=== PATIENT | male | born 1955 | race Caucasian/White ===

== ENCOUNTER 2017-11-29 17:38 | Emergency (ER) | payer OTHER ==
[2017-11-29] MEDS ORDERED: Silver Nitrate Applicator Each TOP ONE (18:38)
[2017-11-29] MEDS ORDERED: Diphtheria,Pertussis(Acell),Tetanus Vaccine 0.5 ML SDV IM ONE (18:51)
--- NOTE | 2017-11-29 18:54 | EDM.PDOC ---
ED HPI GENERAL MEDICAL PROBLEM - General Chief Complaint: Laceration Stated Complaint: LEFT THUMB LACERATION Time Seen by Provider: 11/29/17 18:20 Source of Information: Reports: Patient, Family History Limitations: Reports: No Limitations - History of Present Illness INITIAL COMMENTS - FREE TEXT/NARRATIVE: Hi presents today for laceration of left thumb. He reports he was cutting kindling and cut the tip of his thumb with a ax. Left 1-Thumb Pain Score (Numeric/FACES): 4 - Related Data Allergies Allergy/AdvReac Type Severity Reaction Status Date / Time No Known Allergies Allergy Verified 11/29/17 18:25 Home Meds: Home Meds Sertraline HCl 50 mg PO DAILY 11/29/17 [History] Past Medical History Psychiatric History: Reports: Depression Social & Family History - Tobacco Use Smoking Status *Q: Never Smoker - Caffeine Use Caffeine Use: Reports: Coffee - Recreational Drug Use Recreational Drug Use: No ED ROS GENERAL - Review of Systems Review Of Systems: See Below Constitutional: Reports: No Symptoms HEENT: Reports: No Symptoms Respiratory: Reports: No Symptoms Cardiovascular: Reports: No Symptoms Endocrine: Reports: No Symptoms Musculoskeletal: Reports: Other (left thumb pain) Skin: Reports: Other (avulsion of left lateral tip of thumb via ax) Neurological: Reports: No Symptoms Psychiatric: Reports: No Symptoms Hematologic/Lymphatic: Reports: No Symptoms Immunologic: Reports: No Symptoms ED EXAM, SKIN/RASH Exam: See Below Text/Narrative:: Hi presents today for injury to left tip of thumb from an ax. He states he was cutting kindling and the ax sliced the tip of his left thumb [employer]. He is unsure of last tetanus. Exam Limited By: No Limitations General Appearance: Alert, WD/WN, Mild Distress Eye Exam: Bilateral Eye: EOMI, Normal Inspection Head: Atraumatic, Normocephalic Neck: Normal Inspection, Supple, Non-Tender, Full Range of Motion. No: Lymphadenopathy (R), Lymphadenopathy (L) Respiratory/Chest: No Respiratory Distress, Lungs Clear, Normal Breath Sounds, No Accessory Muscle Use, Chest Non-Tender Cardiovascular: Normal Peripheral Pulses, Regular Rate, Rhythm, No Edema, No Gallop, No Murmur Peripheral Pulses: 2+: Radial (L), Radial (R) Back Exam: Normal Inspection, Full Range of Motion. No: CVA Tenderness (R), CVA Tenderness (L) Extremities: Normal Range of Motion, No Pedal Edema, Normal Capillary Refill, Other (tenderness to left tip of thumb, small avulsion not including the nailbed , 0.5 cm. Wound not able to be closed with sutures. ) Neurological: Alert, Oriented, CN II-XII Intact, Normal Cognition, Normal Gait, No Motor/Sensory Deficits Psychiatric: Normal Affect, Normal Mood Skin: Warm, Dry, No Rash, Wound/Incision Location, Skin: Other (left thumb as described above) Associated features: Tenderness Lymphatic: No Adenopathy ED SKIN PROCEDURES - Laceration/Wound Repair Left Digit - 1st (Thumb) Lac/Wound length In cm: 0.5 Distal NVT: Neuro & Vascular Intact, No Tendon Injury Closed with: Other (use of silver nitrate to wound bed to control bleeding, patient tolerated well. ) Sterile Dressing Applied: Nurse Tetanus Status Addressed: Yes Complications: No Progress/Comments: Patient tolerated well. Course - Vital Signs Last Recorded V/S: Last Vital Signs Temp 35.9 C 11/29/17 18:24 Pulse 57 L 11/29/17 18:24 Resp 16 11/29/17 18:24 BP 122/80 11/29/17 18:24 Pulse Ox 99 11/29/17 18:24 - Orders/Labs/Meds Orders: Active Orders 24 hr Category Date Time Status Vaccines to be Administered [RC] PER UNIT ROUTINE Care 11/29/17 18:51 Active Meds: Medications Discontinued Medications Generic Name Dose Route Start Last Admin Trade Name Freq PRN Reason Stop Dose Admin Diphtheria/Tetanus/Acell Pertussis 0.5 ml 11/29/17 18:51 11/29/17 19:11 Adacel IM 11/29/17 18:52 0.5 ml .ONCE ONE Administration Silver Nitrate 1 each 11/29/17 18:38 11/29/17 19:13 Silver Nitrate TOP 11/29/17 18:39 1 each ONETIME ONE Administration - Re-Assessments/Exams Free Text/Narrative Re-Assessment/Exam: 11/29/17 18:54 Use Departure - Departure Time of Disposition: 19:39 Disposition: Home, Self-Care 01 Condition: Good Clinical Impression: Skin avulsion - Discharge Information *PRESCRIPTION DRUG MONITORING PROGRAM REVIEWED*: Not Applicable *COPY OF PRESCRIPTION DRUG MONITORING REPORT IN PATIENT LEXY: Not Applicable Instructions: Deep Skin Avulsion Referrals: PCP,None [Primary Care Provider] - Forms: ED Department Discharge Additional Instructions: You have been treated and evaluated for small skin avulsion of the left thumb. Use of silver nitrate to control bleeding used. Keep dressing on for 24 hours. You may shower tomorrow night as normal. Keep the finger clean and dry. Do not complete tasks where your thumb is immersed in water or will get dirty. You can take acetaminophen and ibuprofen for pain. Keep the thumb elevated to help with pain. Use of ice can also help with pain. Follow up with your primary provider in 3 days for a recheck of the wound. Return to the emergency room for worsening, issues or concerns. - Assessment/Plan Assessment:: Skin avulsion Use of silver nitrate Finger dressing Plan: Patient evaluated for small skin avulsion of the left thumb. Use of silver nitrate to control bleeding used. Keep dressing on for 24 hours. He may shower tomorrow night as normal. Keep the finger clean and dry. Do not complete tasks where thumb is immersed in water or will get dirty. Take acetaminophen and ibuprofen for pain. Keep the thumb elevated to help with pain. Use of ice can also help with pain. Follow up with primary provider in 3 days for a recheck of the wound. Return to the emergency room for worsening, issues or concerns.
== END 2017-11-29 19:53 | disposition home or self-care (01) ==
LOC: JP.ED 17:38
DX: S61.012A Laceration without foreign body of left thumb without damage to nail, initial encounter (principal); F32.9 Major depressive disorder, single episode, unspecified; Z79.899 Other long term (current) drug therapy; W26.9XXA Contact with unspecified sharp object(s), initial encounter
CPT/HCPCS: 12001; 90471; 90715; 99283-25